=== PATIENT | female | born 1975 | race Caucasian/White ===

== ENCOUNTER → 2016-10-25 | Outpatient (CLI) | payer BC ==
--- NOTE | 2016-10-26 10:20 | MAM ---
EXAM DESCRIPTION: MAMMO BREAST SCREENING BILATERAL CAD, images were reviewed with CAD technology, R2 computer-aided detection. CLINICAL HISTORY: [facility]. COMPARISON: 2013. FINDINGS: Routine views are obtained. [place] views are also performed. Patient has mammographically benign appearing bilateral subpectoral implants. Glandular tissue is heterogeneously dense and somewhat nodular in contour, stable. No dominant mass, architectural distortion or clustered microcalcification. IMPRESSION: Benign exam. BIRAD CATEGORY: 2 BENIGN RECOMMENDATIONS: FOLLOW-UP: Routine screening mammogram in one year. According to the [employer], yearly mammograms are recommended starting at age 40 and continuing as long as a woman is in good health. Any breast change noted on a breast self-exam should be reported promptly to the patient's healthcare provider. Breast MRI is recommended for women with an approximately 20-25% or greater lifetime risk of breast cancer, including women with a strong family history of breast or ovarian cancer and women who have been treated for Hodgkin's disease. Electronically signed by: Siomara Alvarez 10/26/2016 10:18
== END | disposition home or self-care (01) ==
LOC: MAMMO 12:49
PROVIDERS: ATTEND Family Medicine
DX: Z12.31 Encounter for screening mammogram for malignant neoplasm of breast (principal)

== ENCOUNTER → 2017-11-14 | Outpatient (CLI) | payer BC, OTHER ==
--- NOTE | 2017-11-14 16:15 | MRI ---
EXAM DESCRIPTION: Lumbar Spine w/o Contrast MRI. CLINICAL HISTORY: LUMBAR PAIN COMPARISON: MRI lumbar spine 03/03/2010. TECHNIQUE: Multiplanar, multiple standard sequences, non contrast MRI, lumbar spine. FINDINGS: L4-5: Disc desiccation and posterior broad-based 4 mm disc bulge abutting the thecal sac and the descending L5 nerve roots above the bilateral subarticular recesses. Bright T2 signal annular fissure in the posterior left disc margin AP canal diameter 8 mm. Bilateral foraminal stenosis. Bilateral facets are unremarkable with hypertrophy of the posterior ligaments. L5-S1 disc normal with no bulging. Bilaterally shortened pedicles. Moderate canal narrowing. 11 mm. Bilateral mild foraminal stenosis. Minimal ligament hypertrophy. Facets are negative. Focal well-circumscribed bright T1 and T2 lesion in the central superior L4 vertebral body just below the endplate. L3-4: Normal signal in the disc with no disc bulging. Bilateral shortened pedicles. Hypertrophy of the flavum ligaments. Normal facets. Moderate canal narrowing, 11 mm. Bilateral mild foraminal narrowing. L2-3: Normal disc and disc space with no bulging. Bilaterally shortened pedicles. AP canal diameter 11 mm. Bilateral flavum ligament hypertrophy with normal facets. Mild left foraminal narrowing with right foramen patent. L1-2: Normal signal in the disc and normal disc space with no bulging. Minimal hypertrophy of the flavum ligaments with bilaterally shortened pedicles. Normal facets. Bilateral mild foraminal narrowing. T12-L1: Normal disc and disc space. No significant bulging. Conus terminates at L1. Posterior elements unremarkable. Minimal canal narrowing. Bilateral foramina are patent. L2-L4 levoscoliosis. Paravertebral soft tissues are unremarkable. Normal marrow signal in the remaining vertebral bodies and the posterior elements. Vertebral bodies are not compressed at any level. IMPRESSION: 1. Multilevel bony morphology of the canal with shortening of pedicles resulting in significant canal narrowing or stenosis and significant foraminal narrowing or stenosis. Also multilevel flavum ligament hypertrophy. This was also seen on prior exam, but has progressed. 2. Progressive desiccation of the L4-5 disc with posterior bulge and left posterior annular fissure. Mild central canal stenosis. Bilateral foraminal stenoses. Correlate for bilateral L4 radiculopathy. 3. Normal L5-S1 disc with no bulging. Hypertrophy of the posterior ligaments and shortening pedicles resulting in moderate canal narrowing and bilateral foraminal stenosis. Progressed since the prior study. Correlate for bilateral L5 radiculopathy. Electronically signed by: Adam Ramírez MD 11/14/2017 4:15 PM CDT
== END ==
LOC: MRI 09:01
PROVIDERS: ATTEND Family Medicine
DX: M54.5 Low back pain (principal)

== ENCOUNTER → 2018-03-29 | Outpatient (CLI) | payer BC, OTHER ==
--- NOTE | 2018-03-30 16:19 | MAM ---
EXAM DESCRIPTION: 3D Screening BILATERAL : Digital Mammography. CLINICAL HISTORY: 42 years Female SCREENING . No complaints. Remote family history of ovarian cancer. No family history of breast cancer. Childbirth. Postmenopausal. Currently on HRT. Bilateral breast augmentation.. COMPARISON: Bilateral digital screening examination 10/25/2016. Report from prior examination also reviewed. TECHNIQUE: Bilateral CC and MLO projection full-field images, with [place] Implant Displacement 3-D tomosynthesis digital mammographic technique. CAD not utilized. Bilateral 2-D digital full-field images, MLO and CC projections, non-displaced. No CAD. FINDINGS: The breast parenchymal density pattern is: Heterogeneously dense breast tissue, which may obscure small masses. No skin thickening or nipple retraction. Bilateral solitary microcalcifications. Bilateral saline subpectoral implants. Implant capsules are intact where seen. No new focal, stellate mass or density, focal asymmetry , and no suspicious microcalcifications bilaterally. Stable mammograms compared to prior study, taking into account differences in mammographic technique. IMPRESSION: BI-RADS CATEGORY: 2 - BENIGN FINDINGS. FOLLOW UP: Routine digital bilateral screening, one year interval from March 2018. Written communication explaining the IMPRESSION and follow-up, will be mailed to the patient and referring health care provider. According to the [employer], yearly mammograms are recommended starting at age 40 and continuing as long as a woman is in good health. Any breast change noted on a breast self-exam should be reported promptly to the patient's healthcare provider. Breast MRI is recommended for women with an approximately 20-25% or greater lifetime risk of breast cancer, including women with a strong family history of breast or ovarian cancer and women who have been treated for Hodgkin's disease. A negative mammographic report should not delay tissue diagnosis in patients with significant clinical history or physical findings. Extremely dense breast tissue limits the sensitivity of digital mammography. Electronically signed by: Adam Ramírez MD 03/30/2018 4:18 PM CDT
== END ==
LOC: MAMMO 13:16
PROVIDERS: ATTEND Nurse Practitioner Acute Care
DX: Z12.31 Encounter for screening mammogram for malignant neoplasm of breast (principal)

== ENCOUNTER → 2018-09-21 | Outpatient (CLI) | payer OTHER | LOC: GMAJS 16:32 | PROVIDERS: ATTEND Physician Assistant | DX: F33.0 Major depressive disorder, recurrent, mild (principal) ==

== ENCOUNTER → 2019-02-09 | Outpatient (CLI) | payer OTHER ==
--- NOTE | 2019-02-09 12:39 | MRI ---
EXAM DESCRIPTION: Brain w/o Contrast: MRI. CLINICAL HISTORY: NEAR SYNCOPE COMPARISON: None. TECHNIQUE: Multiplanar, high-field MRI unit, multiple diffusion sequences, multiple conventional sequences without contrast. FINDINGS: Single focus of hyperintense FLAIR signal in the subcortical white matter of the right frontal lobe at the level of the upper ventricular bodies (axial flair sequence #501, image 15).. Normal signal on the other sequences. Normal FLAIR and T2-weighted signal in the periventricular white matter/araujo radiata and the bilateral centrum semiovale. No hemorrhage, no cerebral edema, no mass-effect. No diffusion restriction. Normal signal in the bilateral basal ganglia. Normal signal in the brainstem and cerebellar hemispheres. No hemorrhage, no parenchymal edema, no mass-effect. No diffusion restriction. Concordance of the diffusion and non-diffusion sequences with no diffusion restriction. Cortical sulci, ventricles, and other CSF spaces, and the subdural spaces are normally configured for the patient's age. No effacement or displacement. No midline shift. No extra-axial hemorrhage. Normal flow signal void in the major vessels of the [place], and the venous sinuses. IACs are symmetric bilaterally. Normal signal in the bilateral mastoid air cells. No mass effect in the bilateral cerebellopontine angles. Pituitary gland occupies most of the sella. Base of the cerebellar tonsils is at the level of the foramen magnum. Minimal mucoperiosteal thickening in the bilateral ethmoid air cells. No air-fluid levels.. The bony calvarium is intact. IMPRESSION: 1. Single focus of abnormal signal in the subcortical white matter of the right frontal lobe. No hemorrhage, mass effect, or diffusion restriction. The remainder of the brain is unremarkable. Consider follow-up study with gadolinium IV contrast if there are focal neurological findings related to the right frontal lobe subcortical white matter. Electronically signed by: Adam Ramírez MD 02/09/2019 12:37 PM CDT
== END ==
LOC: MRI 08:06
PROVIDERS: ATTEND Family Medicine
DX: R55 Syncope and collapse (principal)

== ENCOUNTER → 2019-02-19 | Outpatient (CLI) | payer OTHER ==
--- NOTE | 2019-02-19 08:14 | MRI ---
EXAM DESCRIPTION: Brain w/Contrast CLINICAL HISTORY: SYNCOPE COMPARISON: None available TECHNIQUE: MRI of the brain is performed according to our usual protocol including multiplanar multi sequence technique. Post gadolinium imaging is performed following IV administration of 20 mL of Magnevist. FINDINGS: Sagittal T1 images show intact corpus callosum. Normal pituitary gland with normal T1 appearance of the gerard and medulla and upper cervical cord. Normal signal intensity within the clivus and calvarium. Axial T2 fat sat images reveal preservation of intracranial vascular flow voids. Normal oden matter and white matter T2 signal intensity. Normal ventricles with normal gyral and sulcal fold pattern. The globes appear intact and symmetrical. No abnormal fluid signal in the paranasal sinuses, tympanic cavities or mastoid air cells. Axial flair images show normal signal intensity of the oden matter and the white matter. No microvascular ischemic changes. Diffusion weighted images are negative for focal intense increased signal intensity in the brain parenchyma to suggest restricted diffusion. ADC mapping is negative. Axial T1 precontrast images show normal oden-white matter differentiation. No high signal intensity hemorrhagic lesion of the brain parenchyma. No subdural hematoma. Axial susceptibility weighted images are negative for focal signal loss to suggest abnormal brain parenchymal calcification or hemosiderin deposition. After IV contrast, axial T1 images show normal enhancement of intracranial vessels. No enhancing intracranial mass or abnormal parenchymal enhancement to suggest disruption of the blood brain barrier. Coronal and sagittal T1 postcontrast images show normal dural sinus enhancement with normal enhancement of the pituitary gland. IMPRESSION: Normal pre and postcontrast MR examination of the brain. Electronically signed by: Huan Peck MD 02/19/2019 8:12 AM CDT
== END ==
LOC: MRI 07:11
PROVIDERS: ATTEND Family Medicine
DX: R55 Syncope and collapse (principal)

== ENCOUNTER → 2019-06-26 | Outpatient (CLI) | payer OTHER ==
--- NOTE | 2019-06-27 17:05 | MAM ---
EXAM DESCRIPTION: 3D Screening BILATERAL : Digital Mammography. CLINICAL HISTORY: 43 years Female SCREEN . Tenderness right breast. No other complaints. No personal history of breast cancer. Remote family history of breast cancer. Menarche age 11. Childbirth. Hysterectomy 10+ years ago. Currently on HRT. Bilateral breast augmentation.. Lifetime risk of developing breast cancer (Tyrer-Cuzick model)(%): 7.0 COMPARISON: Bilateral screening digital breast tomosynthesis with [place] implant displacement technique 29 March 2018. 2-D digital screening bilateral mammography with [place] implant displacement technique. October 2016. TECHNIQUE: Bilateral CC and MLO projection full-field images, with [place] Implant Displacement digital tomosynthesis mammographic technique. Bilateral 2-D digital full-field images, MLO and CC projections, non-displaced. Bilateral digital 2-D full-field MLO images. Implant displaced CAD not available for tomosynthesis or 2-D images. FINDINGS: The breast parenchymal density pattern is: Heterogeneously dense breast tissue, which may obscure small masses. No skin thickening or nipple retraction. Bilateral solitary microcalcifications. Skin mole right breast. Bilateral submuscular silicone hybrid implants. No new focal, stellate mass or density, focal asymmetry , and no suspicious microcalcifications bilaterally. Stable mammograms compared to prior study. IMPRESSION: Benign exam. BIRAD CATEGORY: 2 BENIGN FINDINGS. RECOMMENDATIONS: FOLLOW UP: Routine digital bilateral mammographic screening, one year interval from June 2019. Written communication explaining the IMPRESSION and follow-up, will be mailed to the patient and referring health care provider. According to the [employer], yearly mammograms are recommended starting at age 40 and continuing as long as a woman is in good health. Any breast change noted on a breast self-exam should be reported promptly to the patient's healthcare provider. Breast MRI is recommended for women with an approximately 20-25% or greater lifetime risk of breast cancer, including women with a strong family history of breast or ovarian cancer and women who have been treated for Hodgkin's disease. A negative mammographic report should not delay tissue diagnosis in patients with significant clinical history or physical findings. Extremely dense breast tissue limits the sensitivity of digital mammography. Electronically signed by: Adam Ramírez MD 06/27/2019 5:04 PM CDT
== END ==
LOC: MAMMO 10:06
PROVIDERS: ATTEND Family Medicine
DX: Z12.31 Encounter for screening mammogram for malignant neoplasm of breast (principal)

== ENCOUNTER → 2019-09-19 | Outpatient (CLI) | payer OTHER ==
--- NOTE | 2019-09-20 15:59 | MRI ---
EXAM DESCRIPTION: Brain w/wo Contrast: Magnetic Resonance Imaging. CLINICAL HISTORY: 43 years Female HEADACHE COMPARISON: MRI scan of the brain with contrast 19 February 2019 and MRI scan of the brain without contrast 10 days earlier. TECHNIQUE: Multiplanar, high-field MRI, multiple conventional sequences, without and with gadolinium IV contrast. No adverse reactions. Multiple axial diffusion sequences. FINDINGS: Normal FLAIR and T2-weighted signal in the periventricular white matter and oden-white matter junctions of the cerebral hemispheres. . Normal signal in the bilateral basal ganglia. No hemorrhage, no cerebral edema, no mass-effect. Normal contrast enhancement. Normal signal in the brainstem and cerebellar hemispheres. No hemorrhage, no cerebral edema, no mass-effect. Normal contrast enhancement. Concordance of the diffusion and non-diffusion sequences with no evidence of acute or subacute infarction. Cortical sulci, ventricles, and other CSF spaces, and the subdural spaces are normally configured for patients age. No effacement or displacement. No midline shift. No extra-axial hemorrhage. Normal contrast enhancement. Normal flow signal void in the major vessels of the [place], and the venous sinuses. IACs are symmetric bilaterally. Normal signal in the bilateral mastoid air cells. No mass effect in the bilateral Cerebellopontine angles. Normal contrast enhancement. Pituitary gland occupies all of the sella. Normal contrast enhancement. Base of the cerebellar tonsils is at the level of the foramen magnum. Minimal mucoperiosteal thickening in the ethmoid air cells of the paranasal sinuses. No air-fluid levels. The bony calvarium is intact. IMPRESSION: 1. Normal MRI scan of the brain without and with gadolinium IV contrast. 2. Normal noncontrast MRI diffusion scan with no evidence of diffusion restriction. Electronically signed by: Adam Ramírez MD 09/20/2019 3:57 PM [facility]
== END ==
LOC: MRI 08:58
PROVIDERS: ATTEND Family Medicine
DX: R51 Headache (principal); E34.9 Endocrine disorder, unspecified

== ENCOUNTER → 2020-08-08 | Outpatient (CLI) | payer OTHER ==
--- NOTE | 2020-08-11 15:22 | MAM ---
EXAM DESCRIPTION: 3D Screening BILATERAL : Digital Mammography. CLINICAL HISTORY: 44 years Female SCREENING occasional pain on the right. Remote family history of ovarian cancer. No family history of breast cancer. Menarche age 10. Childbirth age 17. Hysterectomy age 32. Currently on HRT. Bilateral breast augmentation. Lifetime risk of developing breast cancer (Tyrer-Cuzick model)(%): 6.9. COMPARISON: Bilateral screening digital breast tomosynthesis June 2019 and March 2018 No prior reports available. TECHNIQUE: Bilateral CC and MLO projection full-field images, with [place] Implant Displacement digital tomosynthesis mammographic technique. Bilateral 2-D digital full-field images, MLO and CC projections, non-displaced. Bilateral digital 2-D full-field MLO images. With Bilateral [place] displacement CAD available for 2-D images. FINDINGS: The breast parenchymal density pattern is: Heterogeneously dense breast tissue, which may obscure small masses. Axillary nodes. Bilateral retromuscular implants. Capsules appear intact where seen. Solitary microcalcifications. No skin thickening or nipple retraction No new focal, stellate mass or density, focal asymmetry , and no suspicious microcalcifications bilaterally. Stable mammograms compared to prior study. IMPRESSION: Benign exam. BIRAD CATEGORY: 2 BENIGN FINDINGS. RECOMMENDATIONS: FOLLOW UP: Routine digital bilateral mammographic screening, one year interval from August 2020. Written communication explaining the IMPRESSION and follow-up, will be mailed to the patient and referring health care provider. According to the [employer], yearly mammograms are recommended starting at age 40 and continuing as long as a woman is in good health. Any breast change noted on a breast self-exam should be reported promptly to the patient's healthcare provider. Breast MRI is recommended for women with an approximately 20-25% or greater lifetime risk of breast cancer, including women with a strong family history of breast or ovarian cancer and women who have been treated for Hodgkin's disease. A negative mammographic report should not delay tissue diagnosis in patients with significant clinical history or physical findings. Extremely dense breast tissue limits the sensitivity of digital mammography. Electronically signed by: Adam Ramírez MD 08/11/2020 3:20 PM [employer]
== END ==
LOC: MAMMO 10:04
PROVIDERS: ATTEND Family Medicine
DX: Z12.31 Encounter for screening mammogram for malignant neoplasm of breast (principal)